=== PATIENT | male | born 1940 | race Caucasian/White ===

== ENCOUNTER 2017-05-29 12:18 | Day surgery (SDC) | payer MEDICARE, BC ==
--- NOTE | 2017-05-24 09:48 | HP ---
CC: Dr. Ridley HISTORY AND PHYSICAL: DATE OF PLANNED ADMISSION AND SURGERY: 05/29/17 HISTORY OF PRESENT ILLNESS: Mr. Arthur is a 77-year-old white male who is admitted with a left renal calculus for cystoscopy, left ureteral stent insertion followed by shockwave lithotripsy of a left renal calculus. Mr. Arthur is a known stone former whom I have been following for several years. He had required shockwave lithotripsy of a left renal calculus in September 2007. He was seen last week in my office because of on-and-off gross hematuria associated with left flank pain that started about two weeks earlier. He had some nausea, but no vomiting, no fever or chills. The pain was manageable. He had a workup with renal ultrasound, which showed mild left hydronephrosis and nonobstructing 5- and 8-mm calculi in the lower pole calyx of the left kidney and a 1-cm partially obstructing calculus at the left ureteropelvic junction. There were no calculi and no hydronephrosis noted in the right kidney. The patient had a KUB which confirmed the presence of a 1-cm radiopaque calculus at the level of the ureteropelvic junction. The patient has been doing relatively well with no acute pain. He is now being admitted for the above procedure. PAST MEDICAL HISTORY AND SYSTEM REVIEW: The patient is generally in good health. He has history of arthritis for which he takes Voltaren. He has environmental allergies, on Leela. He has GERD, on omeprazole. He has history of osteoporosis, and he is on Fosamax weekly. ALLERGIES: He reports having a reaction or allergy to CRESTOR, ZOCOR, and has severe reaction to PEANUTS. He develops diarrhea on DAIRY PRODUCTS. SOCIAL HISTORY: The patient has never been a smoker. REVIEW OF SYSTEMS: He denies any cardiac or pulmonary diseases or symptoms. PHYSICAL EXAMINATION GENERAL: Pleasant and healthy-looking white male who looks good for his age. VITAL SIGNS: Blood pressure 130/80, pulse 65. LUNGS: Clear. HEART: Regular and rhythmic. No murmurs. ABDOMEN: Soft. No masses. No tenderness. There is mild left CVA tenderness. EXTERNAL GENITALIA: Normal. He is uncircumcised. No penile lesions. Normal testes and no hernias. RECTAL: Showed a slightly enlarged, but non-suspicious prostate. IMPRESSION: Left renal calculi with a 1-cm calculus in the left renal pelvis causing partial left hydronephrosis and left flank pain. PLAN: Plan is for cystoscopy, placement of left ureteral stent, and shockwave lithotripsy of the left renal calculus. I discussed the above plans in detail with the patient and his . Some of the potential complications including infection, gross hematuria, small incidence of renal injury were all discussed. The patient understands he might require additional procedures for definitive treatment of the left renal calculi. [id number]/[facility] #: [id number] [facility]
[~2017-05-29 12:18] MED LIST: Buffered Lidocaine 0.9% SYRIN* 5 ML/SYR SYRINGE INTRADERM ONE; Dexamethasone IV* 4 MG/ML 1 ML (4 MG) IV SLOW PU ONE; Dexamethasone IV* 4 MG/ML 1 ML (4 MG) ONE; cefTRIAXone(*) 2 GM ADDV.VIAL IVPB ONE
--- NOTE | 2017-05-29 12:47 | RAD ---
Indication: Renal calculi Flat plate of the abdomen demonstrates calcifications overlying the left psoas margin at L2-L3 level. This is similar to that seen previously. IMPRESSION: Calcification overlying the left psoas muscle muscle at the L2-L3 level.
[2017-05-29] MEDS ORDERED: fentaNYL* 50 MCG/ML 2 ML VIAL (100 MCG VIAL) IV PRN (15:05)
[2017-05-29] MEDS ORDERED: oxyCODONE/Acetamin 5/325 MG* TAB PO PRN (15:05)
[2017-05-29] MEDS ORDERED: Ondansetron INJ* 2 MG/ML VIAL IV PRN (15:05)
[2017-05-29] MEDS ORDERED: Ondansetron INJ* 2 MG/ML VIAL ONE (15:08)
[2017-05-29] MEDS ORDERED: Ketorolac INJ* 30 MG/ML 1 ML VIAL ONE (15:08)
[2017-05-29] MEDS ORDERED: Midazolam* 1 MG/ML 5 ML VIAL (5 MG) ONE (15:08)
[2017-05-29] MEDS ORDERED: Chloroprocaine 2%* 20 ML VIAL ONE (15:08)
[2017-05-29] MEDS ORDERED: Propofol* 10 MG/ML 20 ML BTL IV PUSH ONE (15:09)
[2017-05-29] MEDS ORDERED: Iohexol 180 (CONTRAST) 10 ML SDV IV ONE (15:15)
[2017-05-29] MEDS ORDERED: fentaNYL* 50 MCG/ML 2 ML VIAL (100 MCG VIAL) ONE (16:03)
[2017-05-29 18:04] VITALS: BP 121/70
--- NOTE | 2017-05-30 15:50 | OP ---
CC: Dr. Ridley * DATE OF OPERATION: 05/29/17 - [facility] DATE OF : 40 SURGEON: Michael Chavez MD ANESTHESIOLOGIST: Dr. Jonny Crawford. ANESTHESIA: Spinal. PRE-OP DIAGNOSIS: Left ureteropelvic junction calculus (1 cm). POST-OP DIAGNOSES: 1. Left ureteropelvic junction calculus (1 cm). 2. Distal left ureteral calculus (1 cm). OPERATIVE PROCEDURE: 1. Cystoscopy. 2. Left ureteroscopy and pyeloscopy, and laser lithotripsies of distal and proximal ureteral calculi, 1 cm each. 3. Left retrograde pyelography and placement of left ureteral stent (6-Emirati). INDICATIONS FOR PROCEDURE: Mr. Arthur is 77-year-old white male who was worked up because of gross hematuria and left flank pain. Renal ultrasound showed nonobstructing left renal calculi, and a 1 cm calculus at the left uretero-pelvic junction associated with mild hydronephrosis. KUB confirmed the presence of a 1 cm radiopaque calculus at the Lt ureteropelvic junction. The patient was admitted for left stent placement and shockwave lithotripsy. PATHOLOGY: At cystoscopy, the penile and bulbar urethrae looked normal. The prostatic urethra measured 2.5 cm in length and there was moderate obstruction by prostate enlargement and elevation of the bladder neck. Examination of the bladder showed no suspicious lesions. There was gravel seen coming from the left ureteral orifice. There was also a stone seen at the level of the left orifice. Upon left ureteroscopy, a 1 cm friable calculus was noted in the distal left ureter just proximal to the orifice. There was another calculus measuring 1 cm in size at the ureteropelvic junction level. No calculi were seen in the renal pelvis. DESCRIPTION OF PROCEDURE: After successful spinal anesthesia, the patient was placed in the lithotomy position and prepped and draped for cystoscopy. The plan was to place a left ureteral stent prior to proceeding with the shockwave lithotripsy of the UPJ stone. Bladder was carefully inspected and the findings at the left orifice were noted. A flexible-tip guidewire was then introduced into the left orifice and the wire was positioned in the area of the renal pelvis. The semi-rigid ureteroscope was then introduced inside the bladder. A flexible- tip basket was then passed through the port of the ureteroscope and the flexible tip of the basket was introduced inside the left ureteral orifice and used as a guide to pass the ureteroscope inside the ureter with minimal trauma. The distal ureteral calculus was identified. A size 550-micron laser fiber was introduced through the other port of the ureteroscope and the stone was broken into multiple pieces and the fragments were extracted. There was no damage to the ureteral wall. The ureter was noted to be dilated and it was easy to introduce the semi-rigid ureteroscope all the way up into the proximal ureter. The calculus at the ureteropelvic junction was noted. Using the laser fiber, the stone was broken into multiple fragments and the fragments were extracted with the basket. The ureter was carefully inspected, and there was no evidence of any ureteral injury. The renal pelvis was then entered and inspected and no calculi were noted. The ureteroscope was then removed keeping the guidewire in place. The cystoscope was then introduced over the guidewire. Retrograde pyelography was performed. A size 6-Emirati stent was then placed with the proximal end coiling in the renal pelvis and the distal end coiling inside the bladder. The stone fragments that had fallen inside the bladder lumen were then extracted and were sent for stone analysis. Final fluoroscopy showed the stent in good position and there was good drainage of contrast from the kidney without extravasation. The scope was removed and a size-16 Emirati Singh was passed inside the bladder and the balloon inflated with 10 cc of water. The patient tolerated the procedure well and left the operating room in good condition. The plan is to see the patient in the office next week and the stent will be removed. [id number]/[facility] #: [id number] SHARIFA
== END 2017-05-29 19:05 | disposition home or self-care (01) ==
LOC: OR 12:18
PROVIDERS: ATTEND Urology
DX: N13.2 Hydronephrosis with renal and ureteral calculous obstruction (principal); N40.1 Benign prostatic hyperplasia with lower urinary tract symptoms; N13.8 Other obstructive and reflux uropathy; M19.90 Unspecified osteoarthritis, unspecified site; J30.9 Allergic rhinitis, unspecified; K21.9 Gastro-esophageal reflux disease without esophagitis; M81.0 Age-related osteoporosis without current pathological fracture; R10.9 Unspecified abdominal pain
CPT/HCPCS: 74000; 82365; 88300; C1876; J0696; J1100; J1885; J2250; J2400; J2405; J2704; J3010

== ENCOUNTER 2018-01-25 06:58 | Day surgery (SDC) | payer MEDICARE, BC ==
--- NOTE | 2018-01-23 08:08 | HP ---
CC: Dr. Ridley * HISTORY AND PHYSICAL: DATE OF PLANNED ADMISSION AND SURGERY: 01/25/18 HISTORY OF PRESENT ILLNESS: Mr. Arthur is a 77-year-old white male, who is admitted with a left ureteral calculus for cystoscopy, left ureteroscopy, laser lithotripsy and left ureteral stent placement. Mr. Arthur is a known stone former and in April 2017, he underwent left ureteroscopy and laser lithotripsy of 2 left ureteral calculi, each measuring about 1 cm in diameter, one located in the distal ureter and one at the ureteropelvic junction. He did very well postoperatively with residual stone in the lower pole yuliana of the left kidney. The patient presented this week for his routine follow-up visit. He has been doing fine, having no flank pain, no voiding symptoms, and no hematuria. He had renal ultrasound, which showed moderate left hydronephrosis and hydroureter and 1 cm stone cluster in the level of the mid ureter. The patient then had a KUB, which showed a 1-cm radiopaque calculus at the level of L5 in the area of the left ureter consistent with the finding on the ultrasound. Because of that finding, the patient is admitted for the above procedure. PAST MEDICAL HISTORY AND SYSTEM REVIEW: He is generally healthy. He denies any cardiac or pulmonary diseases or symptoms. MEDICATIONS: He has osteoporosis for which he is maintained on Fosamax weekly. He has GERD, on omeprazole. He has environmental allergies, on Leela. He has history of arthritis, on Voltaren. ALLERGIES: He denies any allergies to medications. PHYSICAL EXAMINATION GENERAL: Moderately overweight, otherwise healthy looking white male. VITAL SIGNS: Blood pressure 120/70, pulse of 70. LUNGS: Clear. HEART: Regular and rhythmic. No murmurs. ABDOMEN: Soft, no masses, no tenderness and no CVA tenderness. EXTERNAL GENITALIA: Normal. RECTAL EXAM: Shows a moderately enlarged, but nonsuspicious prostate. IMPRESSION: A 1-cm calculus in the mid left ureter with moderate left hydronephrosis. PLAN: For cystoscopy, left ureteroscopy, laser lithotripsy and left ureteral stent placement. Because of the size of the stone, it is possible that the patient might require more than one procedure to render him stone free. All his questions were answered. [id number]/[facility] #: [id number] [facility]
[~2018-01-25 06:58] MED LIST changes: -Dexamethasone IV* 4 MG/ML 1 ML (4 MG) IV SLOW PU ONE; -Dexamethasone IV* 4 MG/ML 1 ML (4 MG) ONE; +Famotidine IV* 10 MG/ML 2 ML (20 mg) IV ONE; +Sodium Citrate/Citric Acid* 15 ML UDC PO ONE; -cefTRIAXone(*) 2 GM ADDV.VIAL IVPB ONE
[2018-01-25] MEDS ORDERED: Iohexol 180 (CONTRAST) 10 ML SDV IV ONE (07:05)
[2018-01-25] MEDS ORDERED: cefTRIAXone(*) 2 GM ADDV.VIAL IVPB ONE (07:14)
[2018-01-25] MEDS ORDERED: Famotidine IV* 10 MG/ML 2 ML (20 mg) ONE (07:14)
[2018-01-25] MEDS ORDERED: Sodium Citrate/Citric Acid* 15 ML UDC ONE (07:14)
[2018-01-25] MEDS ORDERED: oxyCODONE/Acetamin 5/325 MG* TAB PO PRN (07:43)
[2018-01-25] MEDS ORDERED: HYDROmorphone INJ* 1 MG/ML CARPUJECT SYRINGE IV PRN (07:43)
[2018-01-25] MEDS ORDERED: fentaNYL* 50 MCG/ML 2 ML VIAL (100 MCG VIAL) IV PRN (07:43)
[2018-01-25] MEDS ORDERED: diPHENhydraMINE IV* 50 MG/ML 1 ml VIAL (BENADRYL) IV PRN (07:43)
[2018-01-25] MEDS ORDERED: oxyCODONE TAB* 5 MG TAB PO PRN (07:43)
[2018-01-25] MEDS ORDERED: Ondansetron INJ* 2 MG/ML VIAL IV PRN (07:43)
[2018-01-25] MEDS ORDERED: Acetaminophen TAB* 325 MG PO PRN (07:43)
[2018-01-25] MEDS ORDERED: Naloxone* 0.4 MG/ML 1 ML VIAL IV PRN (07:43)
[2018-01-25] MEDS ORDERED: Propofol* 10 MG/ML 20 ML BTL IV PUSH ONE (08:00)
[2018-01-25] MEDS ORDERED: Lidocaine 2% PF * 5 ML VIAL ONE (08:01)
[2018-01-25] MEDS ORDERED: fentaNYL* 50 MCG/ML 2 ML VIAL (100 MCG VIAL) ONE (08:03)
[2018-01-25] MEDS ORDERED: Midazolam* 1 MG/ML 2 ML VIAL (2 MG) ONE ×2 (08:03→09:12)
[2018-01-25] MEDS ORDERED: EPHEDrine (Pressors)* 50 MG/ML VIAL ONE (08:57)
[2018-01-25 10:00] VITALS: BP 129/68
--- NOTE | 2018-01-25 11:43 | RAD ---
HISTORY: Postop left stent insertion COMPARISONS: January 22, 2018 VIEWS: Frontal views of the abdomen. FINDINGS: BOWEL: There is a nonspecific bowel gas pattern, with nondilated small bowel gas noted. CALCULI: A left ureteral stent is noted. Again noted is a calculus of the left mid ureter, measuring 1.3 cm in size on the current examination. There is a calculus of the right upper quadrant suggestive of a gallstone. BONES AND SOFT TISSUES: There are no osseous abnormalities. OTHER FINDINGS: The lung bases are clear. There is no subphrenic gas. IMPRESSION: LEFT NEPHROLITHIASIS AND LEFT URETERAL STENT. CHOLELITHIASIS
--- NOTE | 2018-01-25 11:54 | RAD ---
INDICATION: Left ureteral stent insertion COMPARISON: None FINDINGS: 29 seconds of fluoroscopy were provided for the urology department. Fluoroscopic spot imaging of the left abdomen were obtained for operative control. CPT II Codes: 6045F (fluoro time doc)
--- NOTE | 2018-01-26 03:44 | OP ---
CC: Dr. Ridley * DATE OF OPERATION: 01/25/18 - [facility] DATE OF : 40 SURGEON: Michael Chavez MD ANESTHESIOLOGIST: Dr. Dominique Thurman. ANESTHESIA: Spinal. PRE-OP DIAGNOSIS: Left ureteral calculus. POST-OP DIAGNOSIS: Left ureteral calculus. OPERATIVE PROCEDURE: 1. Cystoscopy. 2. Left ureteroscopy. 3. Left retrograde pyelography and placement of left ureteral stent (6-Bulgarian). INDICATIONS FOR PROCEDURE: Mr. Arthur is a 77-year-old white male who is a known stone former and who had required left ureteroscopy and laser lithotripsy of 2 left ureteral calculi, each measuring about 1 cm in April 2017. Following the procedure, there was residual calculus in the lower pole yuliana of the left kidney. The patient was noted on the recent evaluation to have moderate left hydroureteronephrosis and 1 cm calculus in the mid left ureter. The patient is admitted for treatment of the above stone. PATHOLOGY AT CYSTOSCOPY: The penile and bulbar urethrae looked normal. The prostatic urethra measured 2.5 cm in length and there was moderate obstruction by prostate enlargement. Examination of the bladder showed normal ureteral orifices. There were no suspicious bladder lesion seen. No calculi or diverticula were noted. Upon left ureteroscopy, there was partial narrowing of the ureter about just distal to the location of the stone, which was at the level of L5. The stone was impacted. The retrograde pyelography showed moderate left hydronephrosis and hydroureter. DESCRIPTION OF PROCEDURE: After successful spinal anesthesia, the patient was placed under lithotomy position and was prepped and draped for a cystoscopy. Cystoscopy was performed. The bladder was carefully inspected and above findings were noted. A flexible tip hybrid wire was introduced into the left orifice and after some resistance at the level of the stone was successfully positioned in the area of the renal pelvis. A size 6.5 semirigid ureteroscope was then introduced under direct vision inside the bladder. A flexible-tip basket was introduced through the port of the ureteroscope and the flexible-tip was introduced into the left orifice along side the guidewire. That allowed the atraumatic introduction of the ureteroscope inside the ureter. The partial narrowing of the ureter was encountered just distal to the location of the stone. It was carefully negotiated with the ureteroscope and the scope successfully introduced at the level of the stone. At that level, the stone was noted to be infected. After some manipulation, it was disimpacted and it migrated up proximally. The ureteroscope was then reintroduced; however, the access to the stone was difficult to perform a laser lithotripsy. Because of the proximal location of the stone, it was decided at this time to place a ureteral stent to allow passive dilation of the ureter and the safer lithotripsy. The ureteroscope was removed with the guidewire in place. White placing a stent , the guidewire pulled out. It had to be repositioned and the 6-Bulgarian stent was then placed with the proximal end coiling in the renal pelvis and distal end coiling inside the bladder. There was good drainage of contrast from the kidney. The patient tolerated the procedure well and left the operating room in good condition. The plan is to keep the stent in place for about 2 weeks. The patient will be then brought back in for ureteroscopy and laser lithotripsy. [id number]/[facility] #: [id number] MTDD
== END 2018-01-25 10:38 | disposition home or self-care (01) ==
LOC: OR 06:58
PROVIDERS: ATTEND Urology
DX: N13.2 Hydronephrosis with renal and ureteral calculous obstruction (principal); M81.0 Age-related osteoporosis without current pathological fracture; K21.9 Gastro-esophageal reflux disease without esophagitis; M19.90 Unspecified osteoarthritis, unspecified site; Z68.30 Body mass index [BMI] 30.0-30.9, adult
CPT/HCPCS: 74018; 74420; A9270-GY; C1876; J0696; J2250; J2704; J3010

== ENCOUNTER 2018-02-07 06:04 | Day surgery (SDC) | payer MEDICARE, BC ==
[~2018-02-07 06:04] MED LIST changes: -Sodium Citrate/Citric Acid* 15 ML UDC PO ONE
[2018-02-07] MEDS ORDERED: Famotidine TAB* 20 MG ONE (06:09)
[2018-02-07] MEDS ORDERED: cefTRIAXone(*) 2 GM ADDV.VIAL IVPB ONE (06:09)
[2018-02-07] MEDS ORDERED: Iohexol 180 (CONTRAST) 10 ML SDV IV ONE (06:57)
[2018-02-07] MEDS ORDERED: fentaNYL* 50 MCG/ML 2 ML VIAL (100 MCG VIAL) ONE ×2 (07:27→08:49)
[2018-02-07] MEDS ORDERED: Midazolam* 1 MG/ML 5 ML VIAL (5 MG) ONE (07:27)
[2018-02-07] MEDS ORDERED: Ketorolac INJ* 30 MG/ML 1 ML VIAL ONE (08:02)
[2018-02-07] MEDS ORDERED: Chloroprocaine 2%* 20 ML VIAL ONE (08:02)
[2018-02-07] MEDS ORDERED: Ondansetron INJ* 2 MG/ML VIAL ONE (08:02)
[2018-02-07] MEDS ORDERED: Lidocaine 2% PF * 5 ML VIAL ONE (08:02)
[2018-02-07] MEDS ORDERED: Dexamethasone IV* 4 MG/ML 1 ML (4 MG) ONE (08:02)
[2018-02-07] MEDS ORDERED: Propofol* 10 MG/ML 20 ML BTL IV PUSH ONE (08:02)
[2018-02-07] MEDS ORDERED: Naloxone* 0.4 MG/ML 1 ML VIAL IV PRN (09:27)
[2018-02-07] MEDS ORDERED: oxyCODONE/Acetamin 5/325 MG* TAB PO PRN (09:27)
[2018-02-07] MEDS ORDERED: HYDROmorphone INJ* 1 MG/ML CARPUJECT SYRINGE IV PRN (09:27)
[2018-02-07] MEDS ORDERED: DiMENhydriNATE IV* 50 MG/ML VIAL IV PUSH PRN (09:27)
--- NOTE | 2018-02-07 09:34 | RAD ---
INDICATION: Left ureteral stent exchange COMPARISONS: January 25, 2018 TECHNIQUE: Fluoroscopy was provided for a retrograde pyelogram and stent placement. Total fluoroscopy time is: 8 seconds FINDINGS: Spot images of the straight contrast within the left renal collecting system which appears dilated. A ureteral stent is noted. IMPRESSION: FLUOROSCOPY WAS PROVIDED FOR A RETROGRADE PYELOGRAM AND STENT PLACEMENT CPT II Codes: G9500
[2018-02-07 10:35] VITALS: BP 109/67
--- NOTE | 2018-02-07 11:11 | OP ---
CC: Dr. Ridley.* DATE OF OPERATION: 02/07/18 - [facility] DATE OF : 40 SURGEON: Michael Chavez MD ANESTHESIOLOGIST: Dr. Izzy Bahena ANESTHESIA: Spinal. PRE-OP DIAGNOSES: 1. Proximal left ureteral calculus (1.5 cm). 2. Status post placement of left ureteral stent. POST-OP DIAGNOSES: 1. Proximal left ureteral calculus (1.5 cm). 2. Status post placement of left ureteral stent. OPERATIVE PROCEDURE: 1. Cystoscopy. 2. Left ureteroscopy, laser lithotripsy of left ureteral calculus. 3. Left retrograde pyelography and placement of left ureteral stent (7-Cuban). INDICATION FOR PROCEDURE: Mr. Arthur is a healthy 77-year-old male who is a known stone former and he was brought in 2 weeks ago because of an obstructing 1.5 cm left ureteral calculus. He underwent a left ureteroscopy. Laser lithotripsy could not be performed because of edema of the ureter and the difficult access to the calculus. He had the stent placement. He is now admitted for definitive treatment of the stone. PATHOLOGY AT CYSTOSCOPY: The penile and bulbar urethrae looked normal. The prostatic urethra measured about 3 cm in length and there was obstruction by trilobar hyperplasia of the prostate. Examination of the bladder showed moderate diffuse trabeculations. The distal limb of the stent was seen coming from the left ureteral orifice. At fluoroscopy, the stent was in good position. A 1.5 cm radiopaque calculus was noted in the proximal left ureter adjacent to the stent about 3 to 4 cm distal to the ureteropelvic junction. No other abnormal calcifications were seen at fluoroscopy. Upon left ureteroscopy, there was expected edema of the ureteral wall from the stent. No significant stricture was noted and the ureter has dilated well from the presence of the stent. A 1.5 cm calculus was noted in the proximal ureter. The stone was impacted. It had the gross appearance of a calcium oxalate stone. Retrograde pyelography showed moderate left hydronephrosis. DESCRIPTION OF PROCEDURE: After successful spinal anesthesia, the patient was placed in the lithotomy position and was prepped and draped for a cystoscopy. Cystoscopy was performed. The bladder was inspected and the above findings were noted. The distal limb of the stent was pulled out to the level of the urethral meatus. A flexible-tip guidewire was then introduced through the lumen of the stent and positioned in the area of the renal pelvis and the stent was removed keeping the guidewire in place. A size 6.5 semi-rigid ureteroscope was then introduced inside the urethra under direct vision. A flexible-tip basket was introduced through the port of the ureteroscope and the flexible tip was then passed inside the left ureter adjacent to the guidewire. That allowed atraumatic introduction of the ureteroscope into the ureter. The ureteroscope was passed all the way up until the identification of the stone. The stone was noted to be impacted. The basket was then passed beyond the stone and the basket was deployed to avoid the proximal migration of the stone. A size 550 micron laser fiber was then introduced through the other port of the ureteroscope. The stone was then fragmented into multiple pieces with the laser. The larger fragments were extracted with a basket. There were a few fragments that remained inside the ureter and they should pass spontaneously. At the completion of the procedure, there were no residual stone fragments bigger than 2 mm were seen. There was no injury to the ureteral wall. Retrograde pyelography was then performed showing moderate hydronephrosis and no extravasation. A size 7-Cuban stent was then placed with the proximal end coiling in the renal pelvis and the distal end coiling inside the bladder. The bladder was then irrigated and the larger stone fragments were evacuated and sent for stone analysis. The patient tolerated the procedure well and left the operating room in good condition. The plan is to keep the stent in place for 2 to 3 weeks to allow the healing of the ureter from the stone impaction and from the instrumentation. [id number]/[facility] #: [id number] SHARIFA
--- NOTE | 2018-02-07 12:36 | RAD ---
INDICATION: Status post left-sided ureteral stent placement for renal calculus COMPARISON: Most recent comparison KUB is dated January 25, 2018 TECHNIQUE: 2 views the abdomen were obtained. FINDINGS: The left ureteral stent is anatomically aligned. There is a stable 6 mm calcification at the expected location of the lower pole left renal collecting system. There are no large calcifications along the length of the ureter or overlying the urinary bladder. IMPRESSION: ANATOMIC ALIGNMENT OF LEFT URETERAL STENT.
== END 2018-02-07 11:38 | disposition home or self-care (01) ==
LOC: OR 06:04
PROVIDERS: ATTEND Urology
DX: N13.2 Hydronephrosis with renal and ureteral calculous obstruction (principal); N40.1 Benign prostatic hyperplasia with lower urinary tract symptoms; N13.8 Other obstructive and reflux uropathy; M81.0 Age-related osteoporosis without current pathological fracture; K21.9 Gastro-esophageal reflux disease without esophagitis
CPT/HCPCS: 74018; 74420; 82365; 88300; A9270-GY; C1876; J0696; J1100; J1885; J2250; J2400; J2405; J2704; J3010